=== PATIENT | female | born 1960 | race Caucasian/White ===

== ENCOUNTER → 2020-09-20 | Outpatient (CLI) | payer BC ==
[~2020-09-20] MED LIST: REGADENOSON 0.4 MG/5 ML SYRINGE IV ONE
--- NOTE | 2020-09-20 10:17 | ECHOF ---
Referral Reason:R94.31 abnormal EKG MEASUREMENTS -------- HEIGHT: 157.5 cm WEIGHT: 65.8 kg BP: RVIDd: 3.0 cm (< 3.3) IVSd: 0.7 cm (0.6 - 1.1) LVIDd: 4.2 cm (3.9 - 5.3) LVPWd: 0.9 cm (0.6 - 1.1) IVSs: 1.4 cm LVIDs: 1.5 cm LVPWs: 1.4 cm LAESV Index (A-L): 22.59 ml/m Ao Diam: 2.5 cm (2.0 - 3.7) AV Cusp: 1.6 cm (1.5 - 2.6) LA Diam: 3.1 cm (2.7 - 3.8) MV EXCURSION: 18.742 mm (> 18.000) MV EF SLOPE: 106 mm/s (70 - 150) EPSS: 0.7 cm MV E Phill: 0.65 m/s MV DecT: 200 ms MV A Phill: 0.63 m/s MV E/A Ratio: 1.03 RAP: 5.00 mmHg RVSP: 18.96 mmHg FINDINGS -------- This was a technically good study. The left ventricular size is normal. Left ventricular wall thickness is normal. Overall left vent ricular systolic function is low-normal with, an EF between 50 - 55 %. The diastolic filling patter n is normal for the age of the patient 8.63. The right ventricle is normal in size. The left atrial size is normal. Normal LA size by volume 22+/-6 ml/m2. The right atrial size is normal. Interatrial and interventricular septum intact. The aortic valve is trileaflet and appears structurally normal. The mitral valve is normal. Mild mitral regurgitation is present. The tricuspid valve appears structurally normal. Mild tricuspid regurgitation present. Right vent ricular systolic pressure is normal at < 35 mmHg. There is no pulmonic regurgitation present. The aortic root size is normal. Normal inferior vena cava with normal inspiratory collapse consistent with estimated right atrial pre ssure of 5 mmHg. There is no pericardial effusion. CONCLUSIONS -------- 1. The left ventricular size is normal. 2. Left ventricular wall thickness is normal. 3. Overall left ventricular systolic function is low-normal with, an EF between 50 - 55 %. 4. The diastolic filling pattern is normal for the age of the patient 8.63 5. Mild mitral regurgitation is present. 6. Mild tricuspid regurgitation present. 7. There is no pericardial effusion. SHOWER ROOM ATTENDANT: Kristin Murrell RDCS
--- NOTE | 2020-09-20 12:15 | P.STRESS ---
- Stress Test Note Stress Test Results/Findings: Exam Performed: NM stress lexiscan cardiolite Exam Date: 09/20/20 Reason for Exam: Abnormal EKG Height: 5 ft 2 in Weight: 65.771 kg Protocol: Lexiscan Stage: NA Duration of Exercise: NA Resting Heart Rate: 57 Resting Blood Pressure: 107/72 Maximum Achieved Heart Rate: 96 Maximum Achieved Blood Pressure: 126/76 85% PMHR: 137 100% PMHR: 161 METS: NA Technologist Comment: Stress Test Results/Findings: This is a 60-year-old female with history of smoking and family history of ischemic heart disease being evaluated for symptoms of chest pain and shortness of breath and also palpitations.. Stress data: Baseline EKG showed a sinus rhythm with normal MI interval and QRS duration. Blood pressure at rest is 107/72 with pulse rate of 57. A standard dose of Lexiscan was infused. EKGs taken during and after the infusion did not reveal any changes of ischemia. Final impression: #1. Negative Lexiscan stress test #2. Report on nuclear images to be provided by radiologist.
--- NOTE | 2020-09-20 12:32 | EST ---
Stress Test Results/Findings: Exam Performed: NM stress lexiscan cardiolite Exam Date: 09/20/20 Reason for Exam: Abnormal EKG Height: 5 ft 2 in Weight: 65.771 kg Protocol: Lexiscan Stage: NA Duration of Exercise: NA Resting Heart Rate: 57 Resting Blood Pressure: 107/72 Maximum Achieved Heart Rate: 96 Maximum Achieved Blood Pressure: 126/76 85% PMHR: 137 100% PMHR: 161 METS: NA Technologist Comment: Stress Test Results/Findings: This is a 60-year-old female with history of smoking and family history of ischemic heart disease being evaluated for symptoms of chest pain and shortness of breath and also palpitations.. Stress data: Baseline EKG showed a sinus rhythm with normal KS interval and QRS duration. Blood pressure at rest is 107/72 with pulse rate of 57. A standard dose of Lexiscan was infused. EKGs taken during and after the infusion did not reveal any changes of ischemia. Final impression: #1. Negative Lexiscan stress test #2. Report on nuclear images to be provided by radiologist. KATHERINE
--- NOTE | 2020-09-20 12:47 | NM ---
EXAMINATION TYPE: NM stress lexiscan cardiolite DATE OF EXAM: 09/20/2020 COMPARISON: NONE HISTORY: Abnormal EKG TECHNIQUE: After the intravenous administration of 9.79 mCi Tc 99m Sestamibi - Cardiolite resting SP ECT images acquired 50 minutes post injection. The patient received 0.4mg Lexiscan, 24.7 mCi Tc 99m Sestamibi - Stress images obtained [address] injection FINDINGS: Review of stress and rest SPECT images demonstrates decreased uptake along the anterior wall left chris tricle towards the septum greater on stress than on rest images, apical decreased uptake on stress as compared to rest images. Gated analysis shows normal wall motion with an estimated left ventricular ejection fraction of 39 %. IMPRESSION: Pharmacologically induced left ventricular myocardial ischemia. Report relayed telephonically to ans fernando service of Dr. Montano at the time of interpretation.
--- NOTE | 2020-09-20 15:08 | FL ---
EXAMINATION TYPE: FL UGI air DATE OF EXAM: 09/20/2020 COMPARISON: NONE HISTORY: Epigastric pain. Intermittent heartburn, not on medication. TECHNIQUE: A double contrast UGI study is performed. FINDINGS: The esophagus shows normal motility and emptying into the stomach. No evidence of hiatal hernia or s tricture noted. The stomach shows normal distensibility and peristalsis. There is hypertrophy of the mucosal folds. No evidence of any mass or ulcer disease. No spontaneous or induced gastroesophageal reflux was seen during real time performance of this study. There may be a small proximal duodenal diverticulum versus retained contrast within the duodenal bulb . Otherwise the duodenal bulb, sweep, and proximal small bowel loops are unremarkable. Total fluoroscopy time 1 minute 53 seconds. Total images obtained 23. IMPRESSION: 1. Hypertrophy of the gastric mucosal folds. 2. No hiatal hernia. 3. No gastroesophageal reflux seen. 4. Small proximal duodenal diverticulum versus retained contrast within the duodenal bulb.
== END | disposition home or self-care (01) ==
LOC: RADNMMAIN 08:11
PROVIDERS: ATTEND Family Medicine
DX: I08.1 Rheumatic disorders of both mitral and tricuspid valves (principal); K29.60 Other gastritis without bleeding
CPT/HCPCS: 93017; 93306; 74246; 78452; A9500; J2785

== ENCOUNTER 2020-10-03 06:04 | Day surgery (SDC) | payer BC ==
[2020-10-02 08:44] VITALS: BMI 26.3
[~2020-10-03 06:04] MED LIST changes: +ALPRAZolam 0.25 MG TAB PO PRN; +ALPRAZolam 0.5 MG TAB PO PRN; +NITROGLYCERIN SL TABS 0.4 MG TAB SUBLINGUAL PRN; -REGADENOSON 0.4 MG/5 ML SYRINGE IV ONE; +SODIUM CHLORIDE 0.9% 1,000 ML in EMPTY BAG 1 BAG IV ONE
[2020-10-03] MEDS ORDERED: ASPIRIN 81 MG ONE (06:13)
[2020-10-03 06:27] VITALS: RESP 18; TEMP 97.8
[2020-10-03] MEDS ORDERED: ASPIRIN 325 MG TAB PO ONE (07:00)
[2020-10-03] MEDS ORDERED: ATORVASTATIN 80 MG TAB PO ONE (07:00)
[2020-10-03] MEDS: fentaNYL (PF) 50 MCG/ML 2 ML AMP IV ONE ×2 (07:43→07:50)
[2020-10-03] MEDS ORDERED: MIDAZOLAM 2 MG/2 ML VIAL IV ONE (07:43)
[2020-10-03] MEDS ORDERED: LIDOCAINE 1% INJ 10MG/ML (20 ML MDV) SQ ONE (07:49)
[2020-10-03] MEDS ORDERED: IOPAMIDOL-370 125ML BTL INJ ONE (08:02)
[2020-10-03] MEDS ORDERED: RX INFO: IV CONTRAST WAS GIVEN 1 EACH MISC MISCELLANE PRN (08:07)
[2020-10-03] MEDS ORDERED: SODIUM CHLORIDE 0.9% 1,000 ML IV SCH (08:15)
--- NOTE | 2020-10-03 09:26 | CC ---
CARDIAC CATHETERIZATION REPORT INDICATION: Shortness of breath with abnormal stress test. PROCEDURE NOTE: After obtaining informed consent, left heart catheterization and coronary angiogram were performed via the right femoral artery using standard Rachel catheters. Patient tolerated the procedure well without any obvious immediate complication. A femoral angiogram was performed and Angio-Seal was deployed for hemostasis. Patient received moderate conscious sedation. Total sedation time was 15 minutes. FINDINGS: HEMODYNAMICS: Left ventricular end-diastolic pressure is 10-12 mm. There is no significant gradient across the aortic valve. LEFT VENTRICULOGRAM: Left ventriculogram is not performed. ANGIOGRAPHIC DATA: LEFT MAIN CORONARY ARTERY: Left main coronary artery is a normal-sized vessel and is free of stenosis. Divides into left anterior descending coronary artery and circumflex coronary artery. LEFT ANTERIOR DESCENDING CORONARY ARTERY: LAD shows mild nonobstructive plaque in the proximal and midportion. CIRCUMFLEX CORONARY ARTERY: Circumflex coronary artery is a nondominant vessel and is free of significant stenosis. RIGHT CORONARY ARTERY: Right coronary artery is a large dominant vessel that shows mild atherosclerotic plaque in the proximal part. CONCLUSION: Mild nonobstructive coronary artery disease. PLAN: I reviewed angiographic data with the patient and told her that she does not have significant obstructive CAD and her management is going to be in the form of risk factor modification and optimal medical therapy. MMODL / IJN: [id number] /
--- NOTE | 2020-10-03 09:32 | LTR ---
DATE OF SERVICE: 10/03/2020 RE: Evelyn Arteaga Dear Mary Kate; I performed cardiac catheterization on Evelyn Arteaga, a detailed catheterization note is inclosed for your records. In brief, cardiac catheterization did not reveal significant obstructive CAD and her management is going to be in the form of risk factor modification and optimal medical therapy. Thank you for giving me the privilege to participate in the care of this pleasant lady. Sincerely, MD SHANIQUE Rangel / WILL: [id number] /
[2020-10-03 12:57] VITALS: BP 100/78; PULSE 58
== END 2020-10-03 13:18 | disposition home or self-care (01) ==
LOC: CATHCVL 06:04
PROVIDERS: ATTEND Internal Medicine Cardiovascular Disease
DX: I25.10 Atherosclerotic heart disease of native coronary artery without angina pectoris (principal); Z72.0 Tobacco use; Z82.49 Family history of ischemic heart disease and other diseases of the circulatory system; Z88.1 Allergy status to other antibiotic agents
CPT/HCPCS: 93458; C1769 ×2; C1760; C1894; J2250; J2001; J3010; Q9967

== ENCOUNTER → 2021-10-01 | Outpatient (CLI) | payer BC ==
[2021-10-01 15:56] LABS: Chol/HDL Ratio 2.81 Ratio; HDL Cholesterol 51.3 mg/dL (40.00-60.00); LDL Cholesterol,Calculated 74.9 mg/dL (0.0-131.0); Triglycerides 89.2 mg/dL (0.00-149.00); VLDL Calculation 17.84 mg/dL (5.00-40.00)
== END | disposition home or self-care (01) ==
LOC: LABWHC1 08:43
PROVIDERS: ATTEND Internal Medicine Cardiovascular Disease
DX: E78.2 Mixed hyperlipidemia (principal)
CPT/HCPCS: 36415; 80061; 84450; 84460

== ENCOUNTER 2021-12-11 08:40 | Emergency (ER) | payer BC ==
--- NOTE | 2021-12-11 09:30 | ED ---
General Adult HPI - General Chief complaint: Back Pain/Injury Stated complaint: Shoulder and arm pain Time Seen by Provider: 12/11/21 08:46 Source: patient, RN notes reviewed, old records reviewed Mode of arrival: ambulatory Limitations: no limitations - History of Present Illness Initial comments: 61-year-old female presenting with left shoulder pain. Pain did radiate to the left arm. No central chest pain. No dyspnea. Patient's has no prior history of CAD. Denies abdominal pain nausea vomiting. Denies any muscular injury or overuse. No fall. - Related Data Home Medications Medication Instructions Recorded Confirmed Aspirin [Adult Low Dose Aspirin EC] 81 mg PO QAM 10/02/20 12/11/21 Isosorbide Mononitrate ER [Imdur] 30 mg PO DAILY 10/02/20 12/11/21 Allergies Allergy/AdvReac Type Severity Reaction Status Date / Time hydrocodone [From Vicodin] Allergy Severe Hallucinations Verified 12/11/21 09:26 & throat swelling erythromycin base Allergy Rash/Hives Verified 12/11/21 09:26 Review of Systems ROS Statement: Those systems with pertinent positive or pertinent negative responses have been documented in the HPI. ROS Other: All systems not noted in ROS Statement are negative. Past Medical History Past Medical History: Cancer, Chest Pain / Angina, GERD/Reflux, Hyperlipidemia Additional Past Medical History / Comment(s): "feels like heart stops sometimes", hx breast cancer History of Any Multi-Drug Resistant Organisms: None Reported Past Surgical History: Breast Surgery, Tonsillectomy Additional Past Surgical History / Comment(s): rt mastectomy, Past Anesthesia/Blood Transfusion Reactions: No Reported Reaction Past Psychological History: No Psychological Hx Reported Smoking Status: Current every day smoker Past Alcohol Use History: None Reported Past Drug Use History: None Reported - Past Family History Mother Family Medical History: No Reported History General Exam Limitations: no limitations General appearance: alert, in no apparent distress Head exam: Present: atraumatic, normocephalic Eye exam: Present: normal appearance, PERRL ENT exam: Present: normal exam Neck exam: Present: normal inspection. Absent: tenderness Respiratory exam: Present: normal lung sounds bilaterally. Absent: respiratory distress, wheezes Cardiovascular Exam: Present: tachycardia, irregular rhythm GI/Abdominal exam: Present: soft. Absent: distended, tenderness, guarding Extremities exam: Present: normal inspection, normal capillary refill. Absent: calf tenderness Neurological exam: Present: alert, oriented X3, CN II-XII intact. Absent: motor sensory deficit Psychiatric exam: Present: normal affect, normal mood Skin exam: Present: warm, dry, intact. Absent: cyanosis, diaphoretic Course Vital Signs 12/11/21 08:42 Temperature 98.3 F Pulse Rate 104 H Respiratory 18 Rate Blood Pressure 129/77 O2 Sat by Pulse 98 Oximetry EKG Findings - EKG Comments: EKG Findings:: EKG: Atrial fibrillation with RVR, left axis, rate of 106, QRS duration 76, QTC [address] segment elevation. Medical Decision Making - Medical Decision Making 61-year-old female with left shoulder pain radiating to the arm no injury. I did workup this patient for ACS. She has EKG showing atrial fibrillation without a prior history. She has clear chest x-ray, normal CBC, normal CMP, negative d-dimer, negative troponin. Patient will continue taking daily a spirin. She has a chads score of 1. She will follow-up with her primary care physician regarding the atrial fibrillation. Return parameters are discussed. - Lab Data Result diagrams: 12/11/21 09:28 12/11/21 09:28 Lab Results 12/11/21 12/11/21 12/11/21 Range/Units 09:28 09:28 09:28 WBC 7.1 (3.8-10.6) k/uL RBC 5.19 (3.80-5.40) m/uL Hgb 15.5 (11.4-16.0) gm/dL Hct 47.2 H (34.0-46.0) % MCV 91.0 (80.0-100.0) fL MCH 29.9 (25.0-35.0) pg MCHC 32.9 (31.0-37.0) g/dL RDW 13.8 (11.5-15.5) % Plt Count 303 (150-450) k/uL MPV 6.6 Neutrophils % 55 % Lymphocytes % 37 % Monocytes % 4 % Eosinophils % 2 % Basophils % 1 % Neutrophils # 3.9 (1.3-7.7) k/uL Lymphocytes # 2.6 (1.0-4.8) k/uL Monocytes # 0.3 (0-1.0) k/uL Eosinophils # 0.1 (0-0.7) k/uL Basophils # 0.0 (0-0.2) k/uL PT 10.5 (9.0-12.0) sec INR 1.0 (<1.2) APTT 24.2 (22.0-30.0) sec D-Dimer 0.19 (<0.60) mg/L FEU Sodium 142 (137-145) mmol/L Potassium 4.2 (3.5-5.1) mmol/L Chloride 111 H (98-107) mmol/L Carbon Dioxide 24 (22-30) mmol/L Anion Gap 7 mmol/L BUN 19 H (7-17) mg/dL Creatinine 1.18 H (0.52-1.04) mg/dL Est GFR (CKD-EPI)AfAm 58 (>60 ml/min/1.73 sqM) Est GFR (CKD-EPI)NonAf 50 (>60 ml/min/1.73 sqM) Glucose 101 H (74-99) mg/dL Calcium 9.7 (8.4-10.2) mg/dL Magnesium 2.0 (1.6-2.3) mg/dL Total Bilirubin 0.6 (0.2-1.3) mg/dL AST 22 (14-36) U/L ALT 19 (4-34) U/L Alkaline Phosphatase 107 (38-126) U/L Troponin I (0.000-0.034) ng/mL NT-Pro-B Natriuret Pep pg/mL Total Protein 7.5 (6.3-8.2) g/dL Albumin 4.4 (3.5-5.0) g/dL 12/11/21 12/11/21 Range/Units 09:28 09:28 WBC (3.8-10.6) k/uL RBC (3.80-5.40) m/uL Hgb (11.4-16.0) gm/dL Hct (34.0-46.0) % MCV (80.0-100.0) fL MCH (25.0-35.0) pg MCHC (31.0-37.0) g/dL RDW (11.5-15.5) % Plt Count (150-450) k/uL MPV Neutrophils % % Lymphocytes % % Monocytes % % Eosinophils % % Basophils % % Neutrophils # (1.3-7.7) k/uL Lymphocytes # (1.0-4.8) k/uL Monocytes # (0-1.0) k/uL Eosinophils # (0-0.7) k/uL Basophils # (0-0.2) k/uL PT (9.0-12.0) sec INR (<1.2) APTT (22.0-30.0) sec D-Dimer (<0.60) mg/L FEU Sodium (137-145) mmol/L Potassium (3.5-5.1) mmol/L Chloride (98-107) mmol/L Carbon Dioxide (22-30) mmol/L Anion Gap mmol/L BUN (7-17) mg/dL Creatinine (0.52-1.04) mg/dL Est GFR (CKD-EPI)AfAm (>60 ml/min/1.73 sqM) Est GFR (CKD-EPI)NonAf (>60 ml/min/1.73 sqM) Glucose (74-99) mg/dL Calcium (8.4-10.2) mg/dL Magnesium (1.6-2.3) mg/dL Total Bilirubin (0.2-1.3) mg/dL AST (14-36) U/L ALT (4-34) U/L Alkaline Phosphatase (38-126) U/L Troponin I <0.012 (0.000-0.034) ng/mL NT-Pro-B Natriuret Pep 1480 pg/mL Total Protein (6.3-8.2) g/dL Albumin (3.5-5.0) g/dL Disposition Clinical Impression: Shoulder pain Disposition: HOME SELF-CARE Condition: Good Instructions (If sedation given, give patient instructions): Shoulder Pain (ED) Is patient prescribed a controlled substance at d/c from ED?: No Referrals: None,Stated [Primary Care Provider] - 1-2 days Jhonathan Talbot [STAFF PHYSICIAN] - 1-2 days Kojo Long MD [STAFF PHYSICIAN] - 1-2 days Time of Disposition: 10:18
[2021-12-11 09:34] LABS: Basophils % (A) 1 %; Eosinophils # (A) 0.1 k/uL (0-0.7); Eosinophils % (A) 2 %; HCT 47.2 % (34.0-46.0); HGB 15.5 gm/dL (11.4-16.0); Lymphocytes # (A) 2.6 k/uL (1.0-4.8); Lymphocytes % (A) 37 %; MCH 29.9 pg (25.0-35.0); MCHC 32.9 g/dL (31.0-37.0); Mean Platelet Volume 6.6; Monocytes # (A) 0.3 k/uL (0-1.0); Monocytes % (A) 4 %; Neutrophils # (A) 3.9 k/uL (1.3-7.7); Neutrophils % (A) 55 %; Platelet Count 303 k/uL (150-450); RBC 5.19 m/uL (3.80-5.40); RDW 13.8 % (11.5-15.5); WBC 7.1 k/uL (3.8-10.6)
--- NOTE | 2021-12-11 09:39 | XR ---
EXAMINATION TYPE: XR chest 2V DATE OF EXAM: 12/11/2021 COMPARISON: NONE HISTORY: Chest pain TECHNIQUE: Frontal and lateral views of the chest are obtained. FINDINGS: There is some artifact over the right upper chest with a possible soft tissue abnormality, no focal air space opacity, pleural effusion, or pneumothorax seen. Surgical clips are present in t he right axilla. The cardiac silhouette size is within normal limits. Apical pleural thickening is pr esent. Prominent lung volumes may be indicative of underlying COPD. The osseous structures are intact , there is thoracic spondylosis. IMPRESSION: No acute cardiopulmonary process.
[2021-12-11 09:46] LABS: Albumin 4.4 g/dL (3.5-5.0); Calcium 9.7 mg/dL (8.4-10.2); Potassium 4.2 mmol/L (3.5-5.1); Total Bilirubin 0.6 mg/dL (0.2-1.3); Total Protein 7.5 g/dL (6.3-8.2)
[2021-12-11 09:59] LABS: Partial Thromboplastin Time 24.2 sec (22.0-30.0); Prothrombin Time 10.5 sec (9.0-12.0)
[2021-12-11 10:58] VITALS: BP 115/88; PULSE 78; RESP 16; TEMP 98
== END 2021-12-11 10:54 | disposition home or self-care (01) ==
LOC: EC 08:40
DX: M25.512 Pain in left shoulder (principal); E78.5 Hyperlipidemia, unspecified; F17.200 Nicotine dependence, unspecified, uncomplicated; Z79.82 Long term (current) use of aspirin; Z79.899 Other long term (current) drug therapy
CPT/HCPCS: 36415; 71046; 80053; 83735; 83880; 84484; 85025; 85379; 85610; 85730; 93005; 99284

== ENCOUNTER → 2022-03-14 | Outpatient (CLI) | payer BC | END | disposition home or self-care (01) | LOC: LABWHC1 10:12 | PROVIDERS: ATTEND Nurse Practitioner Family | DX: Z00.00 Encounter for general adult medical examination without abnormal findings (principal) | CPT/HCPCS: 36415; 84443 ==

== ENCOUNTER → 2022-09-23 | Outpatient (CLI) | payer BC ==
--- NOTE | 2022-09-23 17:20 | CTL ---
EXAMINATION TYPE: CT Low Dose Lung DATE OF EXAM ORDERED: 09/23/2022 HISTORY: Long-term tobacco use. Lung cancer screening CT DLP: 65.[address] CTDI: 1.90 mGy Automated exposure control for dose reduction was used. SCREENING VISIT: Baseline COMPARISON: None TECHNIQUE: Low dose computed tomography scan was performed through the chest at 1 mm thick sections a nd reconstructed images in multiple planes at 1 mm and [address] DIAGNOSTIC QUALITY: Satisfactory FINDINGS: LUNG NODULES: None. No distinct greater than 5 mm pulmonary nodules LUNGS: COPD: Severity: Moderate Fibrosis: Severity: Mild to moderate scattered fibrotic change Lymph nodes: No greater than 1 cm Other findings: None RIGHT PLEURAL SPACE: Effusion: None Calcification: None Thickening: None Pneumothorax: None LEFT PLEURAL SPACE: Effusion: None Calcification: None Thickening: None Pneumothorax: None HEART: Heart Size: Normal Coronary Calcification: Mild in the LAD distribution Pericardial Effusion: None OTHER FINDINGS: Upper abdomen: Subcentimeter low dense lesion right hepatic lobe too small to further characterize pr esumed benign axial image 240. Bony thorax: None Supraclavicular region: None Other: Partial visualization of right breast implant. Right axillary surgical clips are noted. IMPRESSION: Mild to moderate emphysematous change bilaterally with [id number] parenchymal fibro tic change. No suspicious pulmonary nodules or masses. CT LUNG RAD AND CT CHEST RECOMMENDATION: Lung-Rad 1 Negative: Continue annual screening with LDCT in 12 months. S Modifier (other clinically significant findings): None
--- NOTE | 2022-09-24 08:49 | XR ---
EXAMINATION TYPE: XR shoulder complete RT DATE OF EXAM: 09/23/2022 COMPARISON: NONE HISTORY: Pain TECHNIQUE: Three views are submitted. FINDINGS: The osseous structures are intact. There is no acute fracture or dislocation. Mild AC joint arthropa thy. Surgical clips in both axilla. Tiny sclerotic density overlying the humeral head likely in the b asis of IMPRESSION: 1. Mild AC joint arthropathy. If there is concern for rotator cuff disease correlate with MRI
== END | disposition home or self-care (01) ==
LOC: RADCTMAIN 16:05
PROVIDERS: ATTEND Internal Medicine
DX: Z12.2 Encounter for screening for malignant neoplasm of respiratory organs (principal); J43.9 Emphysema, unspecified; J84.10 Pulmonary fibrosis, unspecified; M19.011 Primary osteoarthritis, right shoulder; Z87.891 Personal history of nicotine dependence
CPT/HCPCS: 71271

== ENCOUNTER → 2022-09-29 | Outpatient (CLI) | payer BC ==
[2022-09-29 14:26] LABS: Basophils # (A) 0.07 X 10*3/uL (0.00-0.10); Basophils % (A) 0.7 %; Eosinophils # (A) 0.16 X 10*3/uL (0.04-0.35); Eosinophils % (A) 1.7 %; HCT 47.3 % (37.2-46.3); HGB 15.3 g/dL (12.0-15.0); Immature Grans, Automated 0.3 %; Lymphocytes # (A) 3.92 X 10*3/uL (0.90-5.00); Lymphocytes % (A) 41.6 %; MCH 29.2 pg (27.0-32.0); MCHC 32.3 g/dL (32.0-37.0); MCV 90.3 fL (80.0-97.0); Mean Platelet Volume 9.6 fL (9.5-12.2); Monocytes # (A) 0.56 X 10*3/uL (0.20-1.00); Monocytes % (A) 5.9 %; NRBC Per 100 WBC 0 /100 WBCS (0.0-0.0); Neutrophils # (A) 4.69 X 10*3/uL (1.80-7.70); Neutrophils % (A) 49.8 %; Platelet Count 329 X 10*3/uL (140-440); RBC 5.24 X 10*6/uL (4.10-5.20); RDW 14.8 % (11.5-14.5); WBC 9.43 X 10*3/uL (4.50-10.00)
[2022-09-29 16:24] LABS: ALT 26 U/L (8-44); AST 22 U/L (13-35); African American GFR (CKD) 70.4 (60.0-200.0); Albumin 4.6 g/dL (3.8-4.9); Albumin/Globulin Ratio 1.62 (1.60-3.17); Alkaline Phosphatase 134 U/L (41-126); Blood Urea Nitrogen 17.2 mg/dL (9.0-27.0); Calcium 9.9 mg/dL (8.7-10.3); Carbon Dioxide 25.3 mmol/L (20.0-27.5); Chloride 104 mmol/L (96-109); Chol/HDL Ratio 3.05 Ratio; Globulin 2.9 g/dL (1.6-3.3); Glucose 96 mg/dL (70-110); LDL Cholesterol,Calculated 81.1 mg/dL (0.0-131.0); Non-African American GFR(CKD) 60.8 (60.0-200.0); Potassium 5.2 mmol/L (3.5-5.5); Sodium 140 mmol/L (135-145); Total Protein 7.5 g/dL (6.2-8.2)
== END | disposition home or self-care (01) ==
LOC: LABWHC1 10:51
PROVIDERS: ATTEND Internal Medicine
DX: E78.5 Hyperlipidemia, unspecified (principal)
CPT/HCPCS: 36415; 80053; 80061; 84443; 85025

== ENCOUNTER → 2022-10-16 | Outpatient (CLI) | payer BC ==
--- NOTE | 2022-10-17 05:24 | MR ---
EXAMINATION TYPE: MR shoulder RT wo con DATE OF EXAM: 10/16/2022 COMPARISON: None HISTORY: Rt shoulder pain Multiplanar multiecho imaging of the right shoulder performed with no contrast. The biceps tendon is intact. There is small shoulder joint effusion. Subscapularis tendon is intact. The glenoid marvin appear intact. There are multiple small areas of increased signal in the supraspinatus tendon without retraction. Th ere is small full-thickness tear seen on coronal image 14 of the T2 images. The infraspinatus tendon is intact. There is mild edema in the greater tuberosity of the humerus. There is slight increased fluid at the AC joint. No significant subacromial impingement. Glenohumeral joint is anatomic. No fracture seen. IMPRESSION: Mild thickening and increased signal in the supraspinatus tendon consistent with tendinitis. There ar e small full-thickness tear seen in the supraspinatus tendon at the top of the humeral head. No retra ction. Minor degenerative changes in the AC joint. No significant subacromial impingement. Small shoulder joint effusion that is suggestive of some nonspecific mild synovitis.
== END | disposition home or self-care (01) ==
LOC: RADMRIMAIN 10:20
PROVIDERS: ATTEND Internal Medicine
DX: M75.111 Incomplete rotator cuff tear or rupture of right shoulder, not specified as traumatic (principal); M19.011 Primary osteoarthritis, right shoulder; M25.411 Effusion, right shoulder; M25.511 Pain in right shoulder

== ENCOUNTER 2022-11-03 08:40 | Day surgery (SDC) | payer BC ==
[2022-10-30 09:26] VITALS: BMI 25.0
[~2022-11-03 08:40] MED LIST changes: -ALPRAZolam 0.25 MG TAB PO PRN; -ALPRAZolam 0.5 MG TAB PO PRN; +LACTATED RINGERS 1,000 ML IV SCH; -NITROGLYCERIN SL TABS 0.4 MG TAB SUBLINGUAL PRN; -SODIUM CHLORIDE 0.9% 1,000 ML in EMPTY BAG 1 BAG IV ONE
[2022-11-03] MEDS ORDERED: LIDOCAINE 1% (10MG/ML) FOR IV START INTRADERMA ONE (09:16)
[2022-11-03 09:20] VITALS: RESP 16; TEMP 97.2
[2022-11-03] MEDS ORDERED: PROPOFOL 10 MG/ML 20 ML VIAL IV ONE (09:30)
[2022-11-03] MEDS ORDERED: LIDOCAINE 2% INJ 20 MG/ML (2 ML VIAL) ONE (09:30)
--- NOTE | 2022-11-03 09:56 | P.PCN ---
Date of Procedure: 11/03/22 Procedure(s) Performed: BRIEF HISTORY: Patient is a 62-year-old pleasant white female scheduled for an elective colonoscopy as a part of screening for colorectal neoplasia. PROCEDURE PERFORMED: Colonoscopy. PREOPERATIVE DIAGNOSIS: Screening for colon cancer. IV sedation per Anesthesia. PROCEDURE: After informed consent was obtained, the patient, was brought into the endoscopy unit. IV sedation was administered by Anesthesia under continuous monitoring. Digital rectal examination was normal. Initially the Olympus CF-160 flexible video colonoscope was then inserted in the rectum, gradually advanced into the cecum without any difficulty. Careful examination was performed as the scope was gradually being withdrawn. Ileocecal valve and the appendiceal orifice were visualized and appeared normal. Prep was excellent. Mucosa of the cecum, 5 mm and 1 cm broad-based polyps were by snare polypectomy. In the ascending colon there was a 5 mm sessile polyp removed by snare polypectomy. In the hepatic flexure there was a 2 cm broad-based polyp removed by piecemeal snare polypectomy and complete polypectomy accomplished. In the transverse colon there were 4 polyps measuring between 3-5 mm in size removed by snare polypectomy. In the descending colon there was a 3 mm and 5 mm polyp removed by snare polypectomy. In the sigmoid: There was a 7 mm polyp removed by snare polypectomy. Sigmoid diverticulosis seen. The rectum appeared normal. Retroflexion was performed in the rectum and no lesions were seen. The patient tolerated the procedure well. IMPRESSION: 5 mm and 1 cm broad-based cecal polyp status post polypectomy 5 mm ascending colon polyp status post polypectomy 2 cm broad-based hepatic flexure polyp status post polypectomy 3-5 mm x 4 polyps in the transverse colon status post polypectomy 3 mm and 5 mm descending colon polyp status post polypectomy 7 mm; polyp status post polypectomy Scattered sigmoid diverticulosis. RECOMMENDATIONS: Findings of this examination were discussed with the patient as well as a family.. He was advised to follow with the biopsy results. If the biopsy results adenoma she can have a repeat colonoscopy in 3 years.
[2022-11-03 10:21] VITALS: BP 102/59; PULSE 71
== END 2022-11-03 10:45 | disposition home or self-care (01) ==
LOC: ORWHC2ENDO 08:40
PROVIDERS: ATTEND Internal Medicine Gastroenterology
DX: Z12.11 Encounter for screening for malignant neoplasm of colon (principal); D12.0 Benign neoplasm of cecum; D12.2 Benign neoplasm of ascending colon; D12.3 Benign neoplasm of transverse colon; D12.4 Benign neoplasm of descending colon; D12.5 Benign neoplasm of sigmoid colon; K57.30 Diverticulosis of large intestine without perforation or abscess without bleeding; Z88.1 Allergy status to other antibiotic agents; Z88.8 Allergy status to other drugs, medicaments and biological substances; I10 Essential (primary) hypertension; E78.5 Hyperlipidemia, unspecified; F17.210 Nicotine dependence, cigarettes, uncomplicated; K21.9 Gastro-esophageal reflux disease without esophagitis; Z79.82 Long term (current) use of aspirin; Z79.02 Long term (current) use of antithrombotics/antiplatelets; Z79.899 Other long term (current) drug therapy
CPT/HCPCS: 88305; 45385; J2704; J2001

== ENCOUNTER → 2023-05-22 | Outpatient (CLI) | payer BC ==
[2023-05-22 23:16] LABS: ALT 28 U/L (8-44); AST 21 U/L (13-35); Chol/HDL Ratio 2.74 Ratio; LDL Cholesterol,Calculated 65.9 mg/dL (0.0-131.0); VLDL Calculation 18.52 mg/dL (5.00-40.00)
== END | disposition home or self-care (01) ==
LOC: LABWHC1 09:52
PROVIDERS: ATTEND Internal Medicine Cardiovascular Disease
DX: E78.2 Mixed hyperlipidemia (principal)
CPT/HCPCS: 36415; 80061; 84450; 84460

== ENCOUNTER → 2024-07-05 | Outpatient (CLI) | payer BC | END | disposition home or self-care (01) | LOC: LABWHC1 09:33 | PROVIDERS: ATTEND Internal Medicine Cardiovascular Disease | DX: Z00.00 Encounter for general adult medical examination without abnormal findings (principal); E78.2 Mixed hyperlipidemia | CPT/HCPCS: 36415; 80053; 80061; 83036; 84439; 84443; 85025 ==

== ENCOUNTER → 2024-11-18 | Outpatient (CLI) | payer BC ==
[2024-11-18 13:43] LABS: ALT 30 U/L (8-44); AST 26 U/L (13-35); Chol/HDL Ratio 3.04 Ratio; LDL Cholesterol,Calculated 104.2 mg/dL (0.0-131.0)
== END | disposition home or self-care (01) ==
LOC: LABWHC1 10:11
PROVIDERS: ATTEND Internal Medicine Cardiovascular Disease
DX: E78.2 Mixed hyperlipidemia (principal)
CPT/HCPCS: 36415; 80061; 84450; 84460